=== PATIENT | female | born 1950 | race Caucasian/White ===

== ENCOUNTER 2019-07-13 06:44 | Observation (INO) ==
--- NOTE | 2019-06-30 07:22 | ANES ---
Anesthesia Pre Procedure Eval HOME MEDICATIONS lancets See Dose Instructions .ROUTE .MEDSUPPLY #100 ea 05/07/18 [Last Taken Unknown] acetaminophen 650 mg tablet,extended release 650 mg PO Q8H PRN 09/09/18 [Last Taken 01/24/19] albuterol sulfate 90 mcg/actuation aerosol inhaler 1 inh IH Q6H PRN #8 g 12/01/18 [Last Taken 01/25/19] blood sugar diagnostic See Rx Instructions .ROUTE .COMPLEX #50 strip 12/23/18 [Last Taken Unknown] budesonide-formoterol HFA 160 mcg-4.5 mcg/actuation aerosol inhaler 2 inh IH BID #10.2 g 03/24/19 [Last Taken Unknown] omeprazole 40 mg capsule,delayed release See Rx Instructions .ROUTE .COMPLEX #30 cap 04/21/19 [Last Taken Unknown] alendronate 70 mg tablet 70 mg PO Q7D #7 tab 05/11/19 [Last Taken Unknown] levothyroxine 25 mcg tablet 25 mcg PO DAILY #90 tab 05/11/19 [Last Taken Unknown] metformin 500 mg tablet See Rx Instructions .ROUTE .COMPLEX #30 tab 05/11/19 [Last Taken Unknown] venlafaxine 150 mg capsule,extended release 24 hr 150 mg PO DAILY #90 cap 05/11/19 [Last Taken Unknown] ascorbic acid (vitamin C) 1,000 mg tablet 1 g PO DAILY #30 tab 05/24/19 [Last Taken Unknown] lisinopril 20 mg tablet See Rx Instructions .ROUTE .COMPLEX #30 tablet 06/09/19 [Last Taken Unknown] ranitidine HCl 150 mg tablet See Rx Instructions .ROUTE .COMPLEX #30 tablet 06/09/19 [Last Taken Unknown] trazodone 50 mg tablet See Rx Instructions .ROUTE .COMPLEX #30 tablet 06/09/19 [Last Taken Unknown] atorvastatin 20 mg tablet 20 mg PO DAILY #30 tab 06/17/19 [Last Taken Unknown] Allergies/Adverse Reactions: Allergies Allergy/AdvReac Type Severity Reaction Status Date / Time egg Allergy positive Verified 06/28/19 10:16 allergy testing grass pollen Allergy positive Verified 06/28/19 10:16 allergy testing horse dander Allergy positive Verified 06/28/19 10:16 allergy testing house dust mite Allergy per Verified 06/28/19 10:16 allergy testing lactose Allergy positive Verified 06/28/19 10:16 allergy testing mold Allergy positive Verified 06/28/19 10:16 allergy testing No Known Drug Allergies Allergy Verified 06/28/19 10:16 peanut Allergy positive Verified 06/28/19 10:16 allergy testing wheat Allergy positive Verified 06/28/19 10:16 allergy testing cockroach Allergy per Uncoded 04/28/19 10:47 allergy testing cows milk Allergy per Uncoded 04/28/19 10:47 allergy testing price Allergy per Uncoded 04/28/19 10:47 allergy testing - Planned Procedure Planned Procedure: Left Arthroplasty Total Knee Medication List Reviewed:: Yes Allergies Verified: Yes Medical History (Last Reviewed 06/30/19 @ 07:20 by Micah Staton CRNA) Osteoporosis (Acute) Major depression (Chronic) Diabetes mellitus, type II (Chronic) Asthma (Chronic) Seasonal allergies (Chronic) High triglycerides Influenza vaccine refused States she has already receive. 04/03/18 Stress incontinence Bilateral primary osteoarthritis of knee Onset Date: ~10/24/17 Hay fever History of Thompson's esophagus Knee pain Anemia Surgical History (Last Reviewed 06/30/19 @ 07:20 by Micah Staton CRNA) History of carpal tunnel release History of colonoscopy Onset Date: 06/03/15 [place]und 12/03/05-negative. 03/30/12-polyp, non-diagnostic. 06/03/15- hyperplastic polyp, ulceration w/associated inflammation. History of cyst of breast Onset Date: ~2012 [place]-excision right breast cyst History of esophageal dilatation Onset Date: 06/03/15 Mukund-12/03/05, 06/03/15 History of esophagogastroduodenoscopy (EGD) Onset Date: 01/26/19 Mukund 12/03/05-gastric polyp, positive H.pylor, no Thompson's. 06/03/15- gastric polyp, mild chronic gastritis, Thompson's esophagus, no dysplasia. 01/26/19 Brandon-no Thompson's. Mild reflux esophagitis. History of hysterectomy Onset Date: ~1998 vaginal History of knee surgery Onset Date: ~2001 arthroscopy-left History of tubal ligation Onset Date: ~1985 Family History (Last Reviewed 06/30/19 @ 07:20 by Micah Staton CRNA) Mother , age 68-complication of diabetes Diabetes Son Alive and well 2 sons Daughter Alive and well Father , age 77-unsure of cause Status post partial gastrectomy Uncle Cancer several maternal uncles-lung ca - Family Anesthesia History Family History:: no untoward family reactions to anesthesia - Airway/Neck/Teeth Teeth Condition: missing Neck Exam: full range of motion Mallampatti Score: 2 Thyromental (T-M) distance: > 6 cm Mandibulo Hyoid distance: > 3 cm - Respiratory Respiratory History: asthma Respiratory Physical: lungs clear, decreased breath sounds Smoking Status: Never smoker Sleep Apnea currently treated: No Sleep Apnea by current assessment: No - Cardiovascular Cardiac History: hypertension Tolerate Activity: Fair Heart Sounds: S1 & S2, Regular - Gastrointestinal NPO since: instructed MN - Anesthesia Assessment and Plan ASA Class: PS, II Anesthesia Type Plan: Spinal - LT ADDUCTOR CANAL BLOCK Planned difficult intubation/equipment available: No
[~2019-07-13 06:44] MED LIST: ISOPROPYL ALCOHOL 480 APPL BTL MC ONE; ROPIVACAINE HCL/PF 100 MG, EPINEPHrine 0.2 MG, KETOROLAC TROMETHAMINE 30 MG in NORMAL S... IJ PRN; TRANEXAMIC ACID 1,000 MG in NORMAL SALINE 100 ML IV PRN; ceFAZolin SODIUM 1 GM VIAL IV PRN; ceFAZolin SODIUM 1 GM VIAL ONE
[2019-07-13] MEDS: RINGER'S SOLUTION,LACTATED 1,000 ML IV PRN ×3 (07:21→09:52)
[2019-07-13] MEDS ORDERED: LIDOCAINE HCL 20 ML VIAL ONE (07:31)
[2019-07-13] MEDS ORDERED: fentaNYL CITRATE/PF 50 MCG/ML AMPUL ONE (07:32)
[2019-07-13] MEDS ORDERED: BUPIVACAINE HCL/EPINEPHRINE 50 ML VIAL ONE (07:32)
[2019-07-13] MEDS ORDERED: PROPOFOL VIAL IV ONE (07:32)
[2019-07-13] MEDS ORDERED: ONDANSETRON HCL/PF 2 MG/ML VIAL ONE (07:32)
[2019-07-13] MEDS ORDERED: ACETAMINOPHEN 500 MG TABLET PO PRN (10:41)
[2019-07-13] MEDS ORDERED: MAGNESIUM HYDROXIDE 30 ML UDC PO PRN (10:41)
[2019-07-13] MEDS ORDERED: NORMAL SALINE 1,000 ML IV PRN (10:41)
[2019-07-13] MEDS ORDERED: oxyCODONE HCL/ACETAMINOPHEN 1 TAB TABLET PO PRN (10:41)
[2019-07-13] MEDS ORDERED: MAG HYDROX/ALUMINUM HYD/SIMETH 30 ML UDC PO PRN (10:41)
[2019-07-13] MEDS ORDERED: ONDANSETRON HCL/PF 2 MG/ML VIAL IV PRN (10:41)
[2019-07-13] MEDS ORDERED: MORPHINE SULFATE 2 MG/ML DISP.SYRIN IV PRN (10:41)
[2019-07-13] MEDS ORDERED: ALBUTEROL SULFATE 2.5 MG/0.5 ML VIAL.NEB IH PRN (10:46)
--- NOTE | 2019-07-13 10:50 | OR ---
Operative Report - Dictated Report Narrative: Date: 07/13/2019 Preoperative diagnosis: Left knee degenerative joint disease. Postoperative diagnosis: Left knee degenerative joint disease. Procedure: Left total knee arthroplasty. Surgeon: Kimo Gong M.D. Sewage Plant Operator: Pedro Quiñones PA-C provided a set of essential, skilled, educated hands that assisted in positioning, transfer, retraction, manipulation, irrigation, closure of wounds, and placement of dressings all of which could not be provided by the available surgical crew. Anesthesia: General with regional block and local periarticular joint injection. Complications: None Specimens: Bone for pathology Estimated blood loss: Minimal. Tourniquet time: 75 minutes at 300 millimeters of mercury. Retained implants: Depuy Attune size 4 standard lugged cemented posterior stabilized femoral component. Size 3 rotating bearing cemented tibial platform. 4 by 8 millimeter posterior stabilized cross-linked tibial insert. 35 millimeter medialized patella button. Indications: Zach is a 68-year-old female diabetic who has been followed in my clinic for period of time with significant complaints of left knee pain consistent with arthritic changes. They had failed conservative measures including but not limited to activity modification, passage of time, medications, and other conservative measures. Patient wished to proceed with surgical treatment. The risks, benefits, and alternatives were discussed in clinic. The risks of , blood clots, bleeding, infection, nerve/tendon blood vessel/ injury, malposition of components, intraoperative fracture, postoperative limited range of motion, persistent pain, failure of components, and need for additional procedures. Patient wished to proceed consent was obtained after answering all questions. Procedure: After marking the correct extremity on the floor, the patient was taken to the operating room. A timeout was performed. IV antibiotics consisting of 2 g of Ancef were administered prior to the procedure. A regional followed by spinal anesthetic was induced by anesthesia. on the operative table with all bony prominences well-padded. Coker catheter was placed and a bump was placed under the operative side buttock. SCDs and JACKELYN hose were utilized on the nonoperative leg. A well-padded tourniquet was applied to the operative thigh. The operative leg was then pre-scrubbed with alcohol prepped and draped in a standard sterile fashion. After exsanguinating the extremity with an Esmarch bandage, the tourniquet was inflated. After marking out the anterior knee for standard incision centered over the patella, the skin was incised and dissected down to the joint retinaculum. The joint retinaculum was marked out as well as the horizontal axis of the patella, and a standard medial parapatellar arthrotomy was then made. The most proximal aspect of the quadriceps tendon and the patella tendon insertion were protected from release. A partial synovectomy was performed as well as a resection of the infrapatellar fat pad. The distal femoral fat pad proximal to the trochlea was also resected using cautery. The soft tissues were elevated off the medial aspect of the proximal tibia using a Gibbons elevator ensuring that we did not transect the medial collateral ligament. Upon initial evaluation range of motion was approximately 3 degrees to 135 degrees of flexion. There were signs of advanced arthrosis in the medial and patellofemoral joint spaces. There were large marginal osteophytes which were removed with a rongeur. The knee was hyperflexed and the patella was tucked laterally. Protecting the surrounding soft tissues with Homans, an entry drill was placed down the femoral canal using Whitesides line for guidance into the entry point. The intramedullary femoral alignment gael was utilized in order to cut the distal femur in 5 of valgus resecting 10 millimeters of bone. Next the distal femur was sized to a size 4 standard. An anterior referencing guide was utilized to place the distal femoral cutting block in 3 of external rotation. This was pin patricia into place. The rotation was confirmed both visually and based on anatomic landmarks. The 4 in 1 cutting jig of the appropriate size was utilized in order to make all bony cuts. Retractors were utilized in order to protect surrounding soft tissues. This cut did not result in any excessive notching. We then cut the box centered over the distal femur. This allowed for resection of the ante rior and posterior cruciate ligaments. I then turned my attention to the preparation of the tibia. Using an extra medullary tibial alignment gael, 2 millimeters of bone was resected off the medial articular surface. This was made perpendicular to the mechanical axis of the joint with the alignment gael centered over the ankle mortise. The alignment gael was parallel to the mechanical axis, centered over the medial one third of the tibial tubercle, paralleling the anterior surface of the tibia. We then turned our attention to the remaining meniscus and soft tissues. These were removed while protecting the surrounding ligaments and soft tissues. The marginal osteophytes off the anterior, posterior, medial, lateral aspects of the femur and tibia were removed. The tibia was sized out to a size 3. Next the tibia was drilled and punched in an externally rotated position as confirmed with a drop gael. Next the trial femur and a series of tibial inserts were utilized in order to allow for full extension and maximal flexion. It was found that a 8 millimeter insert gave the best range of motion and stability at multiple flexion points as well as at full extension there was less than 2 mm of gapping both medially and laterally. There is minimal anterior translation with the knee at 90 of flexion and no signs of being able to dislocate the knee. The patella was then prepared. The initial thickness was 20 millimeters. This was reamed down to 12 millimeters parallel to the anterior surface of the patella. It was sized out to a size 35 mm medialized patella button. This was then drilled and trialed. Without any medial restraint the patella tracked appropriately and did not sublux or dislocate. At this point, it was felt these were the appropriate sized implants and all trials were removed. The standard periarticular joint injection consisting of ropivacaine, Toradol, and epinephrine were injected into the periarticular joint tissues. The bony surfaces were thoroughly irrigated with a pulsatile-suction saline irrigation device. A bone plug from the prior resected anterior chamfer cut was placed into the drill hole at the distal femur. The bony surfaces were then dried in preparation for placement of the implants. The cement was vacuum mixed per the passementerie worker's instructions. The cement was placed on the dry bony surfaces and posterior aspect of the implants. The implants were impacted into place, removing all extruded cement. At this point anesthesia administered tranexamic acid per protocol intravenously. The knee was placed in extension with axial loading with the trial insert while the cement cured. A dilute 0.35% betadyne-saline solution was used to irrigate the knee and allowed to sit in the knee while the cement cured. Once the cement cured, all remaining extruded cement was removed. The knee was placed through a range of motion with the trial insert to ensure appropriate range of motion and stability. Final range of motion was approximately 0 to 130 degrees. The knee was again thoroughly irrigated with pulsatile saline lavage. The final polyethylene insert was then impacted into place ensuring no retained soft tissues. The remaining periarticular joint injection was injected. The knee was then packed with lap sponges which were soaked with dilute betadyne solution and the tourniquet was let down. Pressure was held for approximately 2 minutes and then hemostasis was obtained using electrocautery to coagulate any bleeding vessels. The knee was then placed over a triangle and the arthrotomy was closed with interrupted #1 Vicryl after thoroughly irrigating the joint. The deep and subcutaneous tissues were closed with interrupted 0 and 3-0 Vicryl respectively. Skin was closed with a running subcutaneous 3-0 Monocryl and Prineo dressing. 4 x 4's, ABD, Sof-Rol, and a full leg Valentino wrap were applied. All sponge, needle, blade, and instrument counts were correct prior to closing the wounds. Postoperative condition: The patient was awoken and transferred to the postanesthesia care unit in stable condition. Plan is to be admitted to the inpatient medical/surgical floor postoperatively for 24 hours of IV antibiotics, physical therapy, occupational therapy, and medical co-management. Patient will be weightbearing as tolerated with range of motion as tolerated. DVT prophylaxis will be with SCDs, JACKELYN hose, and pharmacological anticoagulation. Anticipated hospital stay is approximately 2-4 days.
--- NOTE | 2019-07-13 10:59 | ANES ---
Post Anesthesia Discharge - Transfer of Care Transfer of Care handoff given to nurse: Yes - Discharge from PACU Discharge from PACU when meets criteria: Yes - Discharge to ASU Discharge to ASU-no complications/pt stable: Yes
--- NOTE | 2019-07-13 11:00 | ANES ---
Anesthesia Procedure Note Procedure Note: ANESTHESIA PROCEDURE NOTE Date of Procedure: 07/13/2019 Time of procedure: 45. Performed by: Davie Umana CRNA Food Safety Director: None. Preprocedure diagnosis: Left knee degenerative joint disease. Post procedure diagnosis: Same. Procedure: Left ultrasound guided adductor canal block for postoperative analgesia. Indications: The patient is a 68-year-old female, requesting left ultrasound- guided abductor canal block for postoperative analgesia related to left total knee arthroplasty. Findings: See below. Details of the procedure: The tissue over the intended target site was cleansed with ChloraPrepand draped in a sterile fashion. 2 ml Lidocaine 1 % was infiltrated to the skin and subcutaneous tissue at the intended target site. Under sterile technique and ultrasound guidance a 20-gauge block needle was inserted through the left sartorius muscle to the saphenous nerve just anterior and medial to the superficial femoral artery and vein. 15 mL's of 0.5% bupivacaine was injected after negative aspiration for blood. Needle tip and spread of local anesthetic surrounding the saphenous nerve was observed throughout the injection with real time ultrasound visualization. The needle was then removed intact. No complications were noted. The images were retained in the Hospital medical database. EBL: Minimal. Fluids: N/A. Specimen: N/A. Post procedure condition: The patient tolerated the procedure well. No complications were noted. Thank you for this consultation. Davie Umana CRNA
--- NOTE | 2019-07-13 11:21 | ANES ---
Post Anesthesia Assessment - Vital Signs Vitals: Last Vital Signs Temp 36.2 C 07/13/19 11:00 Pulse 106 H 07/13/19 11:10 Resp 20 07/13/19 11:10 BP 138/78 07/13/19 11:10 Pulse Ox 100 07/13/19 11:10 Airway Patency: Normal - Mental Status Level Of Consciousness: Awake - Pain Level Pain Score: 0 - N/V Assessment Nausea/Vomiting Presence: None Dehydration:: No
[2019-07-13] MEDS: ceFAZolin SODIUM 2 GM in DEXTROSE 5 % IN WATER 50 ML IV SCH ×4 (13:53→21:25)
[2019-07-13] MEDS ORDERED: ROSUVASTATIN CALCIUM 10 MG TABLET PO SCH (21:00)
[2019-07-13] MEDS ORDERED: SENNOSIDES/DOCUSATE SODIUM 1 TAB TABLET PO SCH (21:00)
[2019-07-13] MEDS ORDERED: metFORMIN HCL 500 MG TABLET PO SCH (21:00)
[2019-07-13] MEDS ORDERED: traZODone HCL 50 MG TABLET PO SCH (21:00)
[2019-07-13] MEDS: FLUTICASONE PROPION/SALMETEROL 14 PUFF DISK.W.DEV IH SCH (21:19)
[2019-07-13] MEDS: oxyCODONE HCL/ACETAMINOPHEN 1 TAB TABLET PO PRN (21:26)
[2019-07-14] MEDS: oxyCODONE HCL/ACETAMINOPHEN 1 TAB TABLET PO PRN ×3 (03:01→15:01)
[2019-07-14] MEDS: ceFAZolin SODIUM 2 GM in DEXTROSE 5 % IN WATER 50 ML IV SCH ×2 (05:56)
[2019-07-14] MEDS: FAMOTIDINE 20 MG TABLET PO SCH ×2 (06:34→09:39)
[2019-07-14] MEDS: PANTOPRAZOLE SODIUM 20 MG TABLET.DR PO SCH ×2 (06:34→09:40)
[2019-07-14 06:36] LABS: Hematocrit 34.1 % (37.0-47.0); Hemoglobin 10.3 gm/dL (12.5-16.0); Mean Cell Volume 83.2 fl (78-100); Mean Corpuscular Hemoglobin 25.1 pg (27-31); Mean Corpuscular Hgb Conc 30.2 g/dl (32-36); Mean Platelet Volume 9.7 fl (8-12.5); Platelet Count 193 K/mm3 (150-450); Red Cell Distribution Width 16.2 % (11.5-14.0); White Blood Count 13.1 K/mm3 (4.0-10.5)
[2019-07-14 06:54] LABS: Anion Gap 9.7 mmol/L (6.8-13.8); BUN/Creatinine Ratio 15.5 (9.0-21.6); Calcium * 7.9 mg/dL (7.9-10.9); Carbon Dioxide 28.9 mmol/L (24-32.6); Estimated Creat Clear 42.5; Potassium 4.6 mmol/L (3.4-4.6)
[2019-07-14] MEDS ORDERED: LEVOTHYROXINE SODIUM 25 MCG TABLET PO SCH (07:00)
[2019-07-14] MEDS ORDERED: ASCORBIC ACID 500 MG TABLET PO SCH (09:00)
[2019-07-14] MEDS ORDERED: metFORMIN HCL 500 MG TABLET PO SCH (09:00)
[2019-07-14] MEDS ORDERED: LISINOPRIL 20 MG TABLET PO SCH (09:00)
[2019-07-14] MEDS ORDERED: VENLAFAXINE HCL 150 MG CAP.SR.24H PO SCH (09:00)
[2019-07-14] MEDS ORDERED: IBUPROFEN 600 MG TABLET PO PRN (09:26)
[2019-07-14] MEDS: FLUTICASONE PROPION/SALMETEROL 14 PUFF DISK.W.DEV IH SCH (09:38)
[2019-07-14] MEDS ORDERED: ENOXAPARIN SODIUM 40 MG/0.4 ML SYRG SC SCH (09:42)
[2019-07-14] MEDS ORDERED: METOPROLOL TARTRATE 25 MG TABLET PO SCH (12:15)
--- NOTE | 2019-07-14 15:24 | DS ---
(1) Status post total left knee replacement Problem: Acute Date of Discharge:: 07/14/19 Hospital Course: 68-year-old female postop day 1 status post a left total knee arthroplasty. Patient was admitted for observation postoperatively to monitor for postoperative complications, pain control, return to p.o. diet, any other postsurgical complications. Patient has had a fairly uncomplicated stay, note she was having sinus tach, we consulted patient's PCP Dr. White due to mild hypertension and sinus tachycardia. Patient was given metoprolol to begin twice daily. She will follow-up with PCP after discharge. Exam today reveals left lower extremity bandages clean/dry/intact, pernio in place, no significant erythema or drainage, distal capillary refill brisk, sensation intact light touch, diffuse mild tenderness about left knee. Patient is otherwise doing well lives in a 1 level home will be discharged home to begin home health PT, patient is up and ambulating well enough to ride transport to the hospital should begin outpatient physical therapy. Zach Godfrey is confined and homebound due to the fact she does not drive and recently had left total knee arthroplasty performed. Patient will need fpc to monitor new medication for blood pressure and tachycardia. Patient will follow-up with PCP as well to be monitored. Patient will also require physical therapy/occupational therapy services to begin her rehabilitation for her left total knee arthroplasty. The need for home health care and skilled services to regulated time spent [id number] with this person. Patient will follow-up with orthopedic outpatient clinic at 2 weeks postoperative. Patient will continue with the following recommendations: -Weightbearing as tolerated left lower extremity, assistive device PRN -PT/OT progress as tolerated, per protocol -P.o. diet as tolerated -Pain medication Percocet 5/325 mg 1-2 tabs every 4 to 6 hours PRN for pain p.o. -Maintain dressing in place until postoperative follow-up -Follow-up with orthopedic outpatient clinic at 2 weeks postop -DVT prophylaxis, JACKELYN vladimire knee-high, Lovenox until 10 days postoperatively followed by 325 mg aspirin daily for 6 weeks -Home health begin physical therapy monitor blood pressure and tachycardia medication, follow-up with PCP Procedures Performed: see notes below List Procedures: s/p left total knee arthroplasty Results and Findings: Lab Pending Results 07/13/19 10:13: Pathology Specimen Spec to path 07/14/19 06:33: WBC 13.1 H, RBC 4.10 L, Hgb 10.3 L, Hct 34.1 L, MCV 83.2, MCH 25.1 L, MCHC 30.2 L, RDW 16.2 H, Plt Count 193, MPV 9.7 07/14/19 06:33: Sodium 137, Plasma Sodium 138, Potassium 4.6, Chloride 103, Carbon Dioxide 28.9, Anion Gap 9.7, BUN 16, Creatinine 1.03, Est GFR (Non-Af Amer) 57 L, BUN/Creatinine Ratio 15.5, Random Glucose 176 H, Calcium 7.9 Discharge Location: Home Disposition: Home Health Service Home Health Agency: [facility] Home Health Condition: Good Discharge Activity: Activity as tolerated, Weight bearing - Assistive device PRN Discharge Diet: General/regular food Referrals: Kimo Gong MD [Staff Physician] - 07/28/19 9:00 am Problem Oriented Discharge Instructions to Patient/Family: Total Knee Replacement, Care After, [id number] Print Language (Northern Irish or Libyan Available): Northern Irish Additional Patient Instructions (free text): [facility] HH new at discharge, please call and fax discharge information to them. Follow-up in the office with Dr. Gong on 07-28-19 at 9:00am. Prescriptions (Any new or edited meds): Metoprolol Tartrate [Lopressor] 25 mg PO BID #30 tab Transmission Status: Pending to [place], [place] Enoxaparin Sodium [Lovenox] 40 mg SC Q24H #9 disp.syrin Transmission Status: Pending to [place] oxyCODONE HCL/ACETAMINOPHEN [Percocet 5 MG/325 MG] 1 - 2 tab PO Q4H PRN #90 tab PRN Reason: Severe Pain (Pain Scale 7-10) Transmission Status: Sent to [place], [place] Complete Home Medications List: Complete Home Medication List: acetaminophen 650 mg tablet,extended release 650 mg PO Q8H PRN 09/09/18 albuterol sulfate 90 mcg/actuation aerosol inhaler 1 inh IH Q6H PRN #8 g 12/01/18 blood sugar diagnostic See Rx Instructions .ROUTE .COMPLEX #50 strip 12/23/18 alendronate 70 mg tablet 70 mg PO Q7D #7 tab 11/19/19 levothyroxine 25 mcg tablet 25 mcg PO DAILY #90 tab 05/11/19 venlafaxine 150 mg capsule,extended release 24 hr 150 mg PO DAILY #90 cap 05/11/19 ascorbic acid (vitamin C) 1,000 mg tablet 1 g PO DAILY #30 tab 05/24/19 atorvastatin 20 mg tablet 20 mg PO DAILY #30 tab 06/17/19 Diclofenac Sodium [Diclofenac 1% Topical Gel] 1 appl TOPICAL QID PRN 06/30/19 Ibuprofen 400 mg PO DAILY PRN 06/30/19 Lisinopril 1 tab PO DAILY 06/30/19 Omeprazole 1 cap PO DAILY 06/30/19 Ranitidine HCl [Heartburn Relief] 1 tab PO DAILY 06/30/19 metFORMIN HCL [Metformin HCl] 1 tab PO DAILY 06/30/19 traZODone HCL [Desyrel] 50 mg PO HS 06/30/19 budesonide-formoterol HFA 160 mcg-4.5 mcg/actuation aerosol inhaler See Rx Instructions .ROUTE .COMPLEX #10.2 gram 07/02/19 Lancets 0 ea .ROUTE .MEDSUPPLY 07/13/19 Enoxaparin Sodium [Lovenox] 40 mg SC Q24H #9 disp.syrin 07/14/19 Ibuprofen [Motrin] 600 mg PO Q8H PRN tablet 07/14/19 Metoprolol Tartrate [Lopressor] 25 mg PO BID #30 tab 07/14/19 oxyCODONE HCL/ACETAMINOPHEN [Percocet 5 MG/325 MG] 1 - 2 tab PO Q4H PRN #90 tab 07/14/19
[2019-07-14 16:44] VITALS: BP 128/50
[2019-07-19] MEDS ORDERED: ALENDRONATE SODIUM 70 MG TABLET PO SCH (06:00)
== END 2019-07-14 16:30 | disposition home health service (06) ==
LOC: MS 06:44 → SUR 06:44
PROVIDERS: ADMIT Orthopaedic Surgery; ATTEND Orthopaedic Surgery
DX: Z96.652 Presence of left artificial knee joint
CPT/HCPCS: 36415; 73560; 80048; 85027; 88305; 88311; 94640; 94664; 97110; 97116; 97161; 97165; 97535; G0378; J2405

== ENCOUNTER 2019-09-07 08:56 | Observation (INO) ==
[2019-09-07] MEDS ORDERED: ALBUTEROL SULFATE/IPRATROPIUM 3 ML NEBU IH ONE (09:12)
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
[2019-09-07] MEDS ORDERED: METHYLPREDNISOLONE SOD SUCC/PF 125 MG/2 ML VIAL IV ONE (09:55)
[2019-09-07 10:09] LABS: Hematocrit 38.6 % (37.0-47.0); Hemoglobin 11.5 gm/dL (12.5-16.0); Mean Cell Volume 80.1 fl (78-100); Mean Corpuscular Hemoglobin 23.9 pg (27-31); Mean Corpuscular Hgb Conc 29.8 g/dl (32-36); Mean Platelet Volume 10.9 fl (8-12.5); Neutrophil # 3.9 K/mm3 (1.3-6.0); Neutrophil % 70.6 % (42-75.0); Platelet Count 218 K/mm3 (150-450); Red Blood Count 4.82 M/mm3 (4.2-5.4); Red Cell Distribution Width 16.5 % (11.5-14.0); White Blood Count 5.5 K/mm3 (4.0-10.5)
[2019-09-07 10:17] LABS: Troponin I Less than 0.017 ng/mL (0.00-0.10)
[2019-09-07 10:19] LABS: ALT 17 U/L (19-67); AST 17 U/L (0-48); Albumin * 3.5 gm/dl (3.4-5.0); Alkaline Phosphatase * 96 U/L (50-170); Anion Gap 12.8 mmol/L (6.8-13.8); BNP * 272 pg/mL (5-325); BUN/Creatinine Ratio 15.4 (9.0-21.6); Bilirubin, Total 0.2 mg/dL (0.0-1.1); Blood Urea Nitrogen 14 mg/dL (3-23); Ca. Corrected For Albumin 8.8 mg/dL (8.4-10.2); Calcium * 8.7 mg/dL (7.9-10.9); Carbon Dioxide 29.5 mmol/L (24-32.6); Chloride 102 mmol/L (97-106); Glucose * 139 mg/dL (70-110); Potassium 4.3 mmol/L (3.4-4.6); Sodium 140 mmol/L (132-142); Total Protein 7.8 gm/dL (6.2-8.2)
[2019-09-07] MEDS ORDERED: ALBUTEROL SULFATE 2.5 MG/0.5 ML VIAL.NEB IH ONE ×2 (10:48→10:57)
[2019-09-07] MEDS ORDERED: OSELTAMIVIR PHOSPHATE 75 MG CAPSULE PO ONE (10:49)
[2019-09-07] MEDS ORDERED: ACETAMINOPHEN 325 MG TABLET PO PRN (11:30)
[2019-09-07] MEDS ORDERED: guaiFENesin 100 MG/5 ML SYRUP PO PRN (11:30)
[2019-09-07] MEDS ORDERED: ALBUTEROL SULFATE 2.5 MG/0.5 ML VIAL.NEB IH PRN (11:35)
[2019-09-07] MEDS ORDERED: DICLOFENAC SODIUM 100 APPL TUBE TP PRN (11:35)
[2019-09-07] MEDS ORDERED: ASPIRIN 325 MG TABLET.DR PO SCH (11:45)
[2019-09-07] MEDS ORDERED: METOPROLOL TARTRATE 25 MG TABLET PO SCH (11:45)
[2019-09-07] MEDS ORDERED: ROSUVASTATIN CALCIUM 10 MG TABLET PO SCH ×2 (11:45→21:00)
[2019-09-07] MEDS: FLUTICASONE PROPION/SALMETEROL 14 PUFF DISK.W.DEV IH SCH ×2 (13:15→22:04)
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
[2019-09-07] MEDS: FAMOTIDINE 20 MG TABLET PO SCH (13:18)
[2019-09-07] MEDS: ASCORBIC ACID 500 MG TABLET PO SCH (13:18)
[2019-09-07] MEDS: PANTOPRAZOLE SODIUM 40 MG TABLET.EC PO SCH (13:19)
[2019-09-07] MEDS: VENLAFAXINE HCL 150 MG CAP.SR.24H PO SCH (13:19)
[2019-09-07] MEDS: metFORMIN HCL 500 MG TABLET PO SCH (13:19)
[2019-09-07] MEDS: OSELTAMIVIR PHOSPHATE 75 MG CAPSULE PO SCH ×2 (13:19→22:06)
[2019-09-07] MEDS: LISINOPRIL 20 MG TABLET PO SCH (13:19)
[2019-09-07] MEDS: INSULIN REGULAR, HUMAN 100 UNITS/ML VIAL SC SCH ×3 (13:31→22:07)
[2019-09-07] MEDS: LEVOTHYROXINE SODIUM 25 MCG TABLET PO SCH (13:50)
[2019-09-07] MEDS: BENZONATATE 100 MG CAPSULE PO PRN (14:47)
[2019-09-07] MEDS: ALBUTEROL SULFATE 2.5 MG/0.5 ML VIAL.NEB IH SCH ×3 (15:03→22:16)
[2019-09-07] MEDS ORDERED: traZODone HCL 50 MG TABLET PO SCH (21:00)
[2019-09-08] MEDS: BENZONATATE 100 MG CAPSULE PO PRN (00:28)
[2019-09-08] MEDS: ALBUTEROL SULFATE 2.5 MG/0.5 ML VIAL.NEB IH SCH ×2 (02:09→06:18)
[2019-09-08] MEDS: INSULIN REGULAR, HUMAN 100 UNITS/ML VIAL SC SCH (06:51)
[2019-09-08] MEDS: LEVOTHYROXINE SODIUM 25 MCG TABLET PO SCH (06:55)
[2019-09-08] MEDS: PANTOPRAZOLE SODIUM 40 MG TABLET.EC PO SCH (06:55)
[2019-09-08] MEDS ORDERED: predniSONE 20 MG TABLET PO SCH (09:00)
[2019-09-08] MEDS: FLUTICASONE PROPION/SALMETEROL 14 PUFF DISK.W.DEV IH SCH (09:06)
[2019-09-08] MEDS: OSELTAMIVIR PHOSPHATE 75 MG CAPSULE PO SCH (09:06)
[2019-09-08] MEDS: FAMOTIDINE 20 MG TABLET PO SCH (09:07)
[2019-09-08] MEDS: LISINOPRIL 20 MG TABLET PO SCH (09:39)
[2019-09-08] MEDS: ASCORBIC ACID 500 MG TABLET PO SCH (09:40)
[2019-09-08] MEDS: metFORMIN HCL 500 MG TABLET PO SCH (09:40)
[2019-09-08] MEDS: VENLAFAXINE HCL 150 MG CAP.SR.24H PO SCH (09:40)
--- NOTE | 2019-09-08 09:43 | DS ---
(1) Influenza A Problem: Acute (2) Hypoxia Problem: Resolved (3) Wheezing on both sides of chest Problem: Resolved (4) Asthma exacerbation Problem: Resolved (5) Diabetes 1.5, managed as type 2 Problem: Chronic (6) HTN (hypertension) Problem: Chronic Qualifiers: Hypertension type: essential hypertension Qualified Code(s): I10 - Essential (primary) hypertension Date of Discharge:: 09/08/19 Hospital Course: 69-year-old female admitted for influenza type a, bronchial asthma exacerbation, hypoxia was evaluated bedside and was found to be afebrile and in no acute distress. After treating patient with breathing treatments with albuterol [id number] and steroids, her breathing difficulty and shortness of breath has completely resolved and auscultation was negative for any wheezing or abnormal lung sounds. Patient reports she feels much better and back to her old self. She is breathing much easier than when she arrived. Therefore decision to discharge patient home with prescription for Tamiflu which she is to complete over the next 4 days for a total of 5 days, and additional days of oral steroids was made. Patient will also resume all of her routine medications and she was instructed to follow-up with me in the internal medicine clinic within the next 14 days. Procedures Performed: none Results and Findings: Lab Pending Results 09/07/19 09:03: Influenza Type A Ag Positive H, Influenza Type B Ag Negative 09/07/19 09:03: Group A Strep Rapid Negative 09/07/19 09:43: WBC 5.5, RBC 4.82, Hgb 11.5 L, Hct 38.6, MCV 80.1, MCH 23.9 L, MCHC 29.8 L, RDW 16.5 H, Plt Count 218, MPV 10.9, Immature Gran % (Auto) 1.10 H, Immature Gran # (Auto) 0.06 H, Neutrophils % 70.6, Lymphocytes % 11.7 L, Monocytes % 15.7 H, Eosinophils % 0.4, Basophils % 0.5, Nucleated RBC % 0.0, Neutrophils # 3.9, Lymphocytes # 0.64 L, Monocytes # 0.9, Eosinophils # 0.0, Absolute Basophils 0.0 09/07/19 09:43: Sodium 140, Plasma Sodium 141, Potassium 4.3, Chloride 102, Carbon Dioxide 29.5, Anion Gap 12.8, BUN 14, Creatinine 0.91, Est GFR (Non-Af Amer) 66, BUN/Creatinine Ratio 15.4, Random Glucose 139 H, Calcium 8.7, Calcium Adj for Albumin 8.8, Total Bilirubin 0.2, AST 17, ALT 17 L, Alkaline Phosphatase 96, Troponin I Less than 0.017, B-Natriuretic Peptide 272, Total Protein 7.8, Albumin 3.5 09/07/19 09:43: Lactic Acid, Venous 1.4 Discharge Location: Home Disposition: Home self-care Condition: Stable Face to Face Encounter completed per [facility] Guidelines: No Discharge Activity: Activity as tolerated Discharge Diet: Consistent carbs, Low salt, Low fat/chol Additional Patient Instructions (free text): Will be a TCM follow up appointment. Prescriptions (Any new or edited meds): predniSONE [Prednisone] 20 mg PO DAILY 4 Days #4 tab Transmission Status: Pending to [facility] Oseltamivir Phosphate [Tamiflu] 75 mg PO BID 4 Days #8 cap Transmission Status: Pending to [facility] Benzonatate [Tessalon] 200 mg PO Q8H PRN #60 cap PRN Reason: Cough Transmission Status: Pending to [facility] Complete Home Medications List: Complete Home Medication List: acetaminophen 650 mg tablet,extended release 650 mg PO Q8H PRN 09/09/18 alendronate 70 mg tablet 70 mg PO Q7D #7 tab 05/11/19 ascorbic acid (vitamin C) 1,000 mg tablet 1 g PO DAILY #30 tab 05/24/19 lisinopril 20 mg tablet 20 mg PO DAILY #90 tab 07/28/19 metformin 500 mg tablet 500 mg PO DAILY #90 tab 07/28/19 omeprazole 40 mg capsule,delayed release 40 mg PO DAILY #90 cap 07/28/19 ranitidine HCl 150 mg tablet 150 mg PO DAILY #90 tab 07/28/19 trazodone 50 mg tablet 50 mg PO HS #90 tab 07/28/19 blood sugar diagnostic See Rx Instructions .ROUTE .COMPLEX #100 ea 08/02/19 lancets See Rx Instructions .ROUTE .MEDSUPPLY #100 ea 08/02/19 levothyroxine 25 mcg tablet 25 mcg PO DAILY #90 tab 08/27/19 venlafaxine 150 mg capsule,extended release 24 hr 150 mg PO DAILY #90 cap 08/27/19 albuterol sulfate 90 mcg/actuation aerosol inhaler 1 inh IH Q6H PRN #8 g 09/06/19 Atorvastatin Calcium 20 mg PO HS 09/07/19 Budesonide/Formoterol Fumarate [Symbicort 160-4.5 Mcg Inhaler] 2 puff INHALATION BID 09/07/19 Benzonatate [Tessalon] 200 mg PO Q8H PRN #60 cap 09/08/19 Oseltamivir Phosphate [Tamiflu] 75 mg PO BID 4 Days #8 cap 09/08/19 predniSONE [Prednisone] 20 mg PO DAILY 4 Days #4 tab 09/08/19
[2019-09-08 10:38] VITALS: BP 120/81
[2019-09-13] MEDS ORDERED: ALENDRONATE SODIUM 70 MG TABLET PO SCH (07:00)
== END 2019-09-08 10:36 | disposition home or self-care (01) ==
LOC: MS 08:56 → ER 08:56 → MS 12:30
PROVIDERS: ADMIT Family Medicine; ATTEND Family Medicine
DX: E66.01 Morbid (severe) obesity due to excess calories; J10.1 Influenza due to other identified influenza virus with other respiratory manifestations; R09.02 Hypoxemia; Z79.84 Long term (current) use of oral hypoglycemic drugs; E03.9 Hypothyroidism, unspecified; I10 Essential (primary) hypertension; E11.9 Type 2 diabetes mellitus without complications; F32.9 Major depressive disorder, single episode, unspecified; Z68.37 Body mass index [BMI] 37.0-37.9, adult; M19.90 Unspecified osteoarthritis, unspecified site; J45.901 Unspecified asthma with (acute) exacerbation
CPT/HCPCS: 36415; 71020; 71046; 80053; 83519; 83605; 83880; 84484; 85025; 87040; 87081; 87400; 87430; 87449; 93005; 94640; 94664; 96374; 99284; 99285

== ENCOUNTER 2020-08-15 06:06 | Observation (INO) ==
[~2020-08-15 06:06] MED LIST changes: -ISOPROPYL ALCOHOL 480 APPL BTL MC ONE; +MORPHINE SULFATE 15 MG TABLET.SA PO PRN; +RINGER'S SOLUTION,LACTATED 1,000 ML IV PRN; -ROPIVACAINE HCL/PF 100 MG, EPINEPHrine 0.2 MG, KETOROLAC TROMETHAMINE 30 MG in NORMAL S... IJ PRN; +ROPIVACAINE/CLONIDIN/KETOROLAC 50 ML SYRINGE IJ PRN; -ceFAZolin SODIUM 1 GM VIAL ONE
[2020-08-15] MEDS ORDERED: PROPOFOL VIAL IV ONE (06:44)
[2020-08-15] MEDS ORDERED: BUPIVACAINE HCL/EPINEPHRINE 50 ML VIAL IJ ONE (06:44)
[2020-08-15] MEDS ORDERED: MIDAZOLAM HCL/PF 5 MG/ML VIAL ONE (06:44)
[2020-08-15] MEDS ORDERED: ISOPROPYL ALCOHOL 480 APPL BTL MC ONE (06:46)
[2020-08-15] MEDS ORDERED: ceFAZolin SODIUM 1 GM VIAL ONE (06:46)
--- NOTE | 2020-08-15 06:53 | ANES ---
Anesthesia Pre Procedure Eval Vitals/Labs: Last Vital Signs Temp 36.6 C 08/15/20 06:31 Pulse 96 08/15/20 06:31 Resp 18 08/15/20 06:31 BP 156/87 H 08/15/20 06:31 Pulse Ox 96 08/15/20 06:31 HOME MEDICATIONS acetaminophen 650 mg tablet,extended release 650 mg PO Q8H PRN 09/09/18 [Last Taken 07/12/19] blood sugar diagnostic See Rx Instructions .ROUTE .COMPLEX #100 ea 08/02/19 [Last Taken Unknown] lancets See Rx Instructions .ROUTE .MEDSUPPLY #100 ea 08/02/19 [Last Taken Unknown] inhalational spacing device See Rx Instructions .ROUTE .MEDSUPPLY #1 ea 09/20/19 [Last Taken Unknown] ibuprofen 200 mg tablet 200 mg PO prn PRN tab 01/31/20 [Last Taken 08/05/20] levothyroxine 25 mcg tablet See Rx Instructions .ROUTE .COMPLEX #90 tab 02/22/20 [Last Taken Unknown] atorvastatin 20 mg tablet 20 mg PO HS #90 tab 03/06/20 [Last Taken Unknown] meclizine 25 mg tablet 25 mg PO TID PRN #30 tab 03/23/20 [Last Taken Unknown] metoprolol succinate 50 mg tablet,extended release 24 hr 50 mg PO DAILY #90 tab 04/05/20 [Last Taken 08/15/20 05:30] venlafaxine 150 mg capsule,extended release 24 hr See Rx Instructions .ROUTE .COMPLEX #90 cap 05/09/20 [Last Taken Unknown] albuterol sulfate 90 mcg/actuation aerosol inhaler 1 inh IH Q6H PRN #8 g 06/20/20 [Last Taken Unknown] alendronate 70 mg tablet See Rx Instructions .ROUTE .COMPLEX #12 tab 07/11/20 [Last Taken Unknown] lisinopril 20 mg tablet 20 mg PO DAILY #30 tab 07/28/20 [Last Taken 08/15/20 05:30] metformin 500 mg tablet 500 mg PO DAILY #30 tab 07/28/20 [Last Taken Unknown] omeprazole 40 mg capsule,delayed release 40 mg PO DAILY #30 cap 07/28/20 [Last Taken Unknown] trazodone 50 mg tablet 50 mg PO HS #30 tab 07/28/20 [Last Taken Unknown] budesonide-formoterol HFA 160 mcg-4.5 mcg/actuation aerosol inhaler 2 puff INHALATION BID #10.2 g 08/11/20 [Last Taken Unknown] Allergies/Adverse Reactions: Allergies Allergy/AdvReac Type Severity Reaction Status Date / Time egg Allergy Unknown positive Verified 08/15/20 06:37 allergy testing grass pollen Allergy Unknown positive Verified 08/15/20 06:37 allergy testing horse dander Allergy Unknown positive Verified 08/15/20 06:37 allergy testing house dust mite Allergy Unknown per Verified 08/15/20 06:37 allergy testing lactose Allergy Unknown positive Verified 08/15/20 06:37 allergy testing mold Allergy Unknown positive Verified 08/15/20 06:37 allergy testing peanut Allergy Unknown positive Verified 08/15/20 06:37 allergy testing wheat Allergy Unknown positive Verified 08/15/20 06:37 allergy testing No Known Drug Allergies Allergy Verified 08/15/20 06:37 cockroach Allergy Unknown per Uncoded 08/15/20 06:37 allergy testing cows milk Allergy Unknown per Uncoded 08/15/20 06:37 allergy testing price Allergy Unknown per Uncoded 08/15/20 06:37 allergy testing - Planned Procedure Planned Procedure: R Arthroplasty Total Knee Medical History (Last Reviewed 08/15/20 @ 06:35 by Yeimy Geller) Osteoporosis (Acute) patient states has osteopenia, not osteoporosis Major depression (Chronic) Diabetes mellitus, type II (Chronic) Asthma (Chronic) Seasonal allergies (Chronic) High triglycerides Hypothyroid states now normal with medication Influenza vaccine refused States she has already receive. 04/03/18 Sinus tachycardia Stress incontinence Bilateral primary osteoarthritis of knee Onset Date: ~10/24/17 Hay fever History of Thompson's esophagus now-resolved Dr. Taylor 2019 Knee pain Anemia Surgical History (Last Reviewed 08/15/20 @ 06:35 by Yeimy Geller) History of carpal tunnel release History of colonoscopy Onset Date: 06/03/15 Mukund 12/03/05-negative. 03/30/12-polyp, non-diagnostic. 06/03/15- hyperplastic polyp, ulceration w/associated inflammation. History of cyst of breast Onset Date: ~2012 1999, 2012 Poon-excision right breast cyst History of esophageal dilatation Onset Date: 06/03/15 Mukund-12/03/05, 06/03/15 History of esophagogastroduodenoscopy (EGD) Onset Date: 01/26/19 Mukund 12/03/05-gastric polyp, positive H.pylor, no Thompson's. 06/03/15- gastric polyp, mild chronic gastritis, Thompson's esophagus, no dysplasia. 01/26/19 Brandon-no Thompson's. Mild reflux esophagitis. History of hysterectomy Onset Date: ~1998 vaginal History of knee surgery Onset Date: ~2001 arthroscopy-left History of tubal ligation Onset Date: ~1985 Hx of total knee arthroplasty Onset Date: ~07/13/19 Left total knee arthroplasty. Dr. Gong Family History (Last Reviewed 08/15/20 @ 06:36 by Yeimy Geller) Mother , age 68-complication of diabetes Diabetes Son Alive and well 2 sons Daughter Alive and well Father , age 77-unsure of cause Status post partial gastrectomy Uncle Cancer several maternal uncles-lung ca
--- NOTE | 2020-08-15 07:12 | ANES ---
Anesthesia Pre Procedure Eval Vitals/Labs: Last Vital Signs Temp 36.6 C 08/15/20 06:31 Pulse 96 08/15/20 06:31 Resp 18 08/15/20 06:31 BP 156/87 H 08/15/20 06:31 Pulse Ox 96 08/15/20 06:31 HOME MEDICATIONS acetaminophen 650 mg tablet,extended release 650 mg PO Q8H PRN 09/09/18 [Last Taken 07/12/19] blood sugar diagnostic See Rx Instructions .ROUTE .COMPLEX #100 ea 08/02/19 [Last Taken Unknown] lancets See Rx Instructions .ROUTE .MEDSUPPLY #100 ea 08/02/19 [Last Taken Unknown] inhalational spacing device See Rx Instructions .ROUTE .MEDSUPPLY #1 ea 09/20/19 [Last Taken Unknown] ibuprofen 200 mg tablet 200 mg PO prn PRN tab 01/31/20 [Last Taken 08/05/20] levothyroxine 25 mcg tablet See Rx Instructions .ROUTE .COMPLEX #90 tab 02/22/20 [Last Taken Unknown] atorvastatin 20 mg tablet 20 mg PO HS #90 tab 03/06/20 [Last Taken Unknown] meclizine 25 mg tablet 25 mg PO TID PRN #30 tab 03/23/20 [Last Taken Unknown] metoprolol succinate 50 mg tablet,extended release 24 hr 50 mg PO DAILY #90 tab 04/05/20 [Last Taken 08/15/20 05:30] venlafaxine 150 mg capsule,extended release 24 hr See Rx Instructions .ROUTE .COMPLEX #90 cap 05/09/20 [Last Taken Unknown] albuterol sulfate 90 mcg/actuation aerosol inhaler 1 inh IH Q6H PRN #8 g 06/20/20 [Last Taken Unknown] alendronate 70 mg tablet See Rx Instructions .ROUTE .COMPLEX #12 tab 07/11/20 [Last Taken Unknown] lisinopril 20 mg tablet 20 mg PO DAILY #30 tab 07/28/20 [Last Taken 08/15/20 05:30] metformin 500 mg tablet 500 mg PO DAILY #30 tab 07/28/20 [Last Taken Unknown] omeprazole 40 mg capsule,delayed release 40 mg PO DAILY #30 cap 07/28/20 [Last Taken Unknown] trazodone 50 mg tablet 50 mg PO HS #30 tab 07/28/20 [Last Taken Unknown] budesonide-formoterol HFA 160 mcg-4.5 mcg/actuation aerosol inhaler 2 puff INHALATION BID #10.2 g 08/11/20 [Last Taken Unknown] Allergies/Adverse Reactions: Allergies Allergy/AdvReac Type Severity Reaction Status Date / Time egg Allergy Unknown positive Verified 08/15/20 06:37 allergy testing grass pollen Allergy Unknown positive Verified 08/15/20 06:37 allergy testing horse dander Allergy Unknown positive Verified 08/15/20 06:37 allergy testing house dust mite Allergy Unknown per Verified 08/15/20 06:37 allergy testing lactose Allergy Unknown positive Verified 08/15/20 06:37 allergy testing mold Allergy Unknown positive Verified 08/15/20 06:37 allergy testing peanut Allergy Unknown positive Verified 08/15/20 06:37 allergy testing wheat Allergy Unknown positive Verified 08/15/20 06:37 allergy testing No Known Drug Allergies Allergy Verified 08/15/20 06:37 cockroach Allergy Unknown per Uncoded 08/15/20 06:37 allergy testing cows milk Allergy Unknown per Uncoded 08/15/20 06:37 allergy testing price Allergy Unknown per Uncoded 08/15/20 06:37 allergy testing - Planned Procedure Planned Procedure: R Arthroplasty Total Knee Medication List Reviewed:: Yes Allergies Verified: Yes Medical History (Last Reviewed 08/15/20 @ 07:00 by Mendoza Wolfe CRNA) Osteoporosis (Acute) patient states has osteopenia, not osteoporosis Major depression (Chronic) Diabetes mellitus, type II (Chronic) Asthma (Chronic) Seasonal allergies (Chronic) High triglycerides Hypothyroid states now normal with medication Influenza vaccine refused States she has already receive. 04/03/18 Sinus tachycardia Stress incontinence Bilateral primary osteoarthritis of knee Onset Date: ~10/24/17 Hay fever History of Thompson's esophagus now-resolved Dr. Taylor 2019 Knee pain Anemia Surgical History (Last Reviewed 08/15/20 @ 07:00 by Mendoza Wolfe CRNA) History of carpal tunnel release History of colonoscopy Onset Date: 06/03/15 Mukund 12/03/05-negative. 03/30/12-polyp, non-diagnostic. 06/03/15- hyperplastic polyp, ulceration w/associated inflammation. History of cyst of breast Onset Date: ~2012 1999, 2012 Poon-excision right breast cyst History of esophageal dilatation Onset Date: 06/03/15 Mukund-12/03/05, 06/03/15 History of esophagogastroduodenoscopy (EGD) Onset Date: 01/26/19 Mukund 12/03/05-gastric polyp, positive H.pylor, no Thompson's. 06/03/15- gastric polyp, mild chronic gastritis, Thompson's esophagus, no dysplasia. 01/26/19 Brandon-no Thompson's. Mild reflux esophagitis. History of hysterectomy Onset Date: ~1998 vaginal History of knee surgery Onset Date: ~2001 arthroscopy-left History of tubal ligation Onset Date: ~1985 Hx of total knee arthroplasty Onset Date: ~07/13/19 Left total knee arthroplasty. Dr. Gong Family History (Last Reviewed 08/15/20 @ 07:00 by Mendoza Wolfe CRNA) Mother , age 68-complication of diabetes Diabetes Son Alive and well 2 sons Daughter Alive and well Father , age 77-unsure of cause Status post partial gastrectomy Uncle Cancer several maternal uncles-lung ca - Family Anesthesia History Family History:: no untoward family reactions to anesthesia, no familial bleeding tendencies, no family history of clotting disorders, no family history of premature - Airway/Neck/Teeth Teeth Condition: missing - 2 Neck Exam: full range of motion Mallampatti Score: 3 Thyromental (T-M) distance: > 6 cm Mandibulo Hyoid distance: > 3 cm - Respiratory Respiratory History: asthma Respiratory Physical: lungs clear, decreased breath sounds Smoking Status: Never smoker - lived with smokers Sleep Apnea currently treated: No Sleep Apnea by current assessment: No - Cardiovascular Cardiac History: hypertension, hyperlipidemia Tolerate Activity: Poor Heart Sounds: S1 & S2, Regular - Gastrointestinal NPO since: 2400 - Anesthesia Assessment and Plan ASA Class: PS, III Anesthesia Type Plan: Block - adductor canal for post op pain relief, Spinal
[2020-08-15] MEDS ORDERED: FAMOTIDINE 20 MG in DEXTROSE 5 % IN WATER 100 ML IV ONE ×2 (08:02)
[2020-08-15] MEDS ORDERED: ACETAMINOPHEN 500 MG TABLET PO PRN (10:18)
[2020-08-15] MEDS ORDERED: ONDANSETRON HCL/PF 2 MG/ML VIAL IV PRN (10:18)
[2020-08-15] MEDS ORDERED: RINGER'S SOLUTION,LACTATED 1,000 ML IV PRN (10:18)
[2020-08-15] MEDS ORDERED: MAGNESIUM HYDROXIDE 30 ML UDC PO PRN (10:18)
[2020-08-15] MEDS ORDERED: MAG HYDROX/ALUMINUM HYD/SIMETH 30 ML UDC PO PRN (10:18)
[2020-08-15] MEDS ORDERED: ZOLPIDEM TARTRATE 5 MG TABLET PO PRN (10:18)
[2020-08-15] MEDS ORDERED: MORPHINE SULFATE 2 MG/ML DISP.SYRIN IV PRN (10:18)
[2020-08-15] MEDS ORDERED: diphenhydrAMINE HCL 50 MG/ML VIAL IV PRN (10:18)
--- NOTE | 2020-08-15 10:18 | OR ---
Operative Report - Dictated Report Narrative: Date: 08/15/2020 Preoperative diagnosis: Right knee degenerative joint disease. Postoperative diagnosis: Right knee degenerative joint disease. Procedure: Right total knee arthroplasty. Surgeon: Luis Antonio Black M.D. Plaster Machine Tender: Pedro Quiñones PA-C (provided and essential set of skilled, educated hands that assisted with transfer, positioning, prepping, draping, manipulation, retraction, placement of jigs, injection, insertion of implants, irrigation, closure wounds, and dressings all of which could not be performed by the available surgical crew) Anesthesia: Spinal with regional block and local periarticular joint injection. Complications: None Specimens: Bone. Estimated blood loss: Minimal. Tourniquet time: 75 Minutes at 325 millimeters of mercury. Retained implants: Depuy Attune size 4 narrow right lugged cemented posterior stabilized femoral component. Size 3 fixed-bearing cemented tibial platform. 4 by 6 millimeter posterior stabilized cross-linked tibial insert. 38 millimeter medialized patella button. Indications: Mrs. Potter is a 69-year-old female who has had longstanding right knee pain and arthrosis. This patient was followed in my clinic for period of time with significant complaints of right knee pain consistent with arthritic changes. She had failed conservative measures including, but not limited to, activity modification, passage of time, medications, and other conservative measures. Patient wished to proceed with surgical treatment. The risks, benefits, and alternatives were discussed in clinic. The risks of , blood clots, bleeding, infection, nerve/tendon blood vessel/ injury, malposition of components, intraoperative fracture, postoperative limited range of motion, persistent pain, failure of components, and need for additional procedures. Patient wished to proceed consent was obtained after answering all questions. Procedure: After marking the correct extremity on the floor, the patient was taken to the operating room. A timeout was performed. IV antibiotics consisting of Ancef were administered prior to the procedure. A regional followed by spinal anesthetic was induced by anesthesia, per my request, on the operative table with all bony prominences well-padded. Coker catheter was placed, and a bump was placed under the operative side buttock. SCDs and JACKELYN hose were utilized on the nonoperative leg. A well-padded tourniquet was applied to the operative thigh. The operative leg was then pre-scrubbed with alcohol, prepped, and draped in a standard sterile fashion. After exsanguinating the extremity with an Esmarch bandage, the tourniquet was inflated. After marking out the anterior knee for standard incision centered over the patella, the skin was incised and dissected down to the joint retinaculum. The joint retinaculum was marked out as well as the horizontal axis of the patella, and a standard medial parapatellar arthrotomy was then made. The most proximal aspect of the quadriceps tendon and the patella tendon insertion were protected from release. A partial synovectomy was performed as well as a resection of the infrapatellar fat pad. The distal femoral fat pad proximal to the trochlea was also resected using cautery. The soft tissues were elevated off the medial aspect of the proximal tibia using a Gibbons elevator ensuring that we did not transect the medial collateral ligament. Upon initial evaluation range of motion was approximately 0 degrees to 120 degrees of flexion. There were signs of advanced arthrosis in the medial and patellofemoral greater than lateral joint spaces. There were large marginal osteophytes which were removed with a rongeur. The knee was hyperflexed and the patella was tucked laterally. Protecting the surrounding soft tissues with Homans, an entry drill was placed down the femoral canal using Whitesides line for guidance into the entry point. The intramedullary femoral alignment gael was utilized in order to cut the distal femur in 5 degrees of valgus resecting 10 millimeters of bone. Next the distal femur was sized to a size 4. A posterior referencing guide was utilized to place the distal femoral cutting block in 3 degrees of external rotation. This was pinned into place. The rotation was confirmed both visually and based on anatomic landmarks. The 4 in 1 cutting jig of the appropriate size was utilized in order to make all bony cuts. The simone wing was used to ensure no notching. Retractors were utilized in order to protect surrounding soft tissues. This cut did not result in any excessive notching. We then cut the box centered over the distal femur. This allowed for resection of the anterior and posterior cruciate ligaments. I then turned my attention to the preparation of the tibia. Using an extra medullary tibial alignment gael, 3 millimeters of bone was resected off the medial articular surface. This was made perpendicular to the mechanical axis of the joint with the alignment gael centered over the ankle mortise. The alignment gael was checked and was noted to be parallel to the mechanical axis, centered over the medial one third of the tibial tubercle, paralleling the anterior surface of the tibia. We then turned our attention to the remaining meniscus and soft tissues. These were removed while protecting the surrounding ligaments and soft tissues. The marginal osteophytes off the anterior, posterior, medial, lateral aspects of the femur and tibia were removed. The tibia was sized out to a size 3. Next the tibia was drilled and punched in an externally rotated position. Next the trial femur and a series of tibial inserts were utilized in order to allow for full extension and maximal flexion. It was found that a 6 millimeter insert gave the best range of motion and stability at multiple flexion points as well as at full extension there was less than 2 mm of gapping both medially and laterally. There is minimal anterior translation with the knee at 90 degrees of flexion and no signs of being able to dislocate the knee. The patella was then prepared. The initial thickness was 20 millimeters. This was reamed down to 11 millimeters parallel to the anterior surface of the patella. It was sized out to a size 38 medialized patella button. This was then drilled and trialed. Without any medial restraint the patella tracked appropriately and did not sublux or dislocate. At this point, it was felt these were the appropriate sized implants, and all trials were removed. The standard periarticular joint injection consisting of ropivacaine, Toradol, and epinephrine were injected into the periarticular joint tissues. The bony surfaces were thoroughly irrigated with a pulsatile-suction saline irrigation device. A bone plug from the prior resected anterior chamfer cut was placed into the drill hole at the distal femur. The bony surfaces were then dried in preparation for placement of the implants. The cement was vacuum mixed per the analyst market intelligence's instructions. The cement was placed on the dry bony surfaces and posterior aspect of the implants. The implants were impacted into place, removing all extruded cement. At this point anesthesia administered tranexamic acid per protocol intravenously. The knee was placed in extension with axial loading with the trial insert while the cement cured. Once the cement cured, all remaining extruded cement was removed. The knee was placed through a range of motion with the trial insert to ensure appropriate range of motion and stability. Final range of motion was approximately 0 to 120 degrees. The knee was again thoroughly irrigated with pulsatile saline lavage. The final polyethylene insert was then impacted into place ensuring no retained soft tissues. The remaining periarticular joint injection was injected. A medium Hemovac drain was placed exiting superior laterally. The knee was then placed over a triangle and the arthrotomy was closed with interrupted #1 Vicryl after thoroughly irrigating the joint. The deep and subcutaneous tissues were closed with interrupted 0 and 3-0 Vicryl respectively. Skin was closed with a running subcutaneous 3-0 Monocryl and Prineo Dermabond dressing. 4 x 4's, Sof-Rol, and a full leg Valentino wrap were applied. All sponge, needle, blade, and instrument counts were correct prior to closing the wounds. Postoperative condition: The patient was awoken and transferred to the postanesthesia care unit in stable condition. Plan is to be admitted to the inpatient medical/surgical floor postoperatively for 24 hours of IV antibiotics, physical therapy, occupational therapy, and medical comanagement. Patient will be weightbearing as tolerated with range of motion as tolerated. DVT prophylaxis will be with SCDs, JACKELYN hose, and pharmacological anticoagulation. Anticipated hospital stay is approximately 1-3 days.
[2020-08-15] MEDS ORDERED: ALBUTEROL SULFATE 2.5 MG/0.5 ML VIAL.NEB IH PRN (10:20)
--- NOTE | 2020-08-15 10:42 | ANES ---
Post Anesthesia Discharge - Transfer of Care Transfer of Care handoff given to nurse: Yes - Discharge from PACU Discharge from PACU when meets criteria: Yes - Awake in PACU.
--- NOTE | 2020-08-15 10:43 | ANES ---
Anesthesia Procedure Note Procedure Note: ANESTHESIA PROCEDURE NOTE Date of Procedure: 08/15/2020 Time of procedure: 8:40 AM. Performed by: RUBÉN Agarwal CRNA, MSN Charge Entry Specialist: Gurpreet Max RN. Preprocedure diagnosis: Post right total knee arthroplasty pain. Post procedure diagnosis: Same. Procedure: Right adductor Canal Block. Indications: Post right total knee arthroplasty pain relief. Findings: See below. Details of the procedure: The patient was brought to OR #4 and placed in supine position. The patient's right femoral area to the knee was prepped with chlorhexidine and using ultrasound guidance the right femoral artery and nerve was identified and then followed to the level of the adductor canal. Lidocaine 1% was infiltrated to the skin of the intended injection site. Under ultrasound guidance the saphenous nerve was approached with visualization of a 4 inch shielded block needle. Once saphenous nerve was identified with proximity to the needle tip, the saphenous nerve was surrounded with 30 mL bupivacaine 0.25% with 1-200,000 epinephrine. Please see radiology/ultrasound report for details and retained images of the procedure. EBL: 0 Fluids: N/A. Specimen: N/A. Post procedure condition: The patient tolerated the procedure well. No complications were noted. Thank you for this consultation. Mendoza Wolfe CRNA, ARNP, MSN
[2020-08-15] MEDS ORDERED: MORPHINE SULFATE 4 MG/ML SYRG ONE (11:00)
[2020-08-15] MEDS: KETOROLAC TROMETHAMINE 15 MG/ML VIAL IV SCH ×3 (11:23→21:40)
[2020-08-15] MEDS: oxyCODONE HCL/ACETAMINOPHEN 1 TAB TABLET PO PRN ×2 (12:08→16:18)
[2020-08-15] MEDS: ceFAZolin SODIUM 1 GM in DEXTROSE 5 % IN WATER 100 ML IV SCH ×6 (12:19→23:45)
[2020-08-15] MEDS ORDERED: ROSUVASTATIN CALCIUM 10 MG TABLET PO SCH (21:00)
[2020-08-15] MEDS ORDERED: SENNOSIDES/DOCUSATE SODIUM 1 TAB TABLET PO SCH (21:00)
[2020-08-15] MEDS ORDERED: traZODone HCL 50 MG TABLET PO SCH (21:00)
[2020-08-15] MEDS: FLUTICASONE PROPION/SALMETEROL 14 PUFF DISK.W.DEV IH SCH (21:07)
[2020-08-16] MEDS: KETOROLAC TROMETHAMINE 15 MG/ML VIAL IV SCH ×2 (04:08→09:51)
[2020-08-16] MEDS: oxyCODONE HCL/ACETAMINOPHEN 1 TAB TABLET PO PRN ×2 (05:12→09:45)
[2020-08-16 06:28] LABS: Hematocrit 32.3 % (37.0-47.0); Hemoglobin 9.7 gm/dL (12.5-16.0); Mean Cell Volume 85.2 fl (78-100); Mean Corpuscular Hemoglobin 25.6 pg (27-31); Mean Platelet Volume 10.2 fl (8-12.5); Platelet Count 188 K/mm3 (150-450); Red Blood Count 3.79 M/mm3 (4.2-5.4); Red Cell Distribution Width 15.7 % (11.5-14.0); White Blood Count 8.6 K/mm3 (4.0-10.5)
[2020-08-16 06:38] LABS: BUN/Creatinine Ratio 14.8 (9.0-21.6); Calcium * 8.3 mg/dL (7.9-10.9); Carbon Dioxide 30.4 mmol/L (24-32.6); Potassium 4.4 mmol/L (3.4-4.6)
[2020-08-16] MEDS ORDERED: LEVOTHYROXINE SODIUM 25 MCG TABLET PO SCH (07:00)
[2020-08-16] MEDS ORDERED: PANTOPRAZOLE SODIUM 40 MG TABLET.EC PO SCH (07:00)
[2020-08-16] MEDS ORDERED: metFORMIN HCL 500 MG TABLET PO SCH (09:00)
[2020-08-16] MEDS ORDERED: METOPROLOL SUCCINATE 50 MG TABLET.SA PO SCH (09:00)
[2020-08-16] MEDS ORDERED: LISINOPRIL 20 MG TABLET PO SCH (09:00)
[2020-08-16] MEDS ORDERED: VENLAFAXINE HCL 150 MG CAP.SR.24H PO SCH (09:00)
[2020-08-16] MEDS ORDERED: ENOXAPARIN SODIUM 40 MG/0.4 ML SYRG SC SCH (09:19)
[2020-08-16] MEDS: FLUTICASONE PROPION/SALMETEROL 14 PUFF DISK.W.DEV IH SCH (09:48)
--- NOTE | 2020-08-16 13:04 | DS ---
(1) Status post total right knee replacement Problem: Acute Date of Discharge:: 08/16/20 Hospital Course: 69-year-old female postop day 1 status post right total knee arthroplasty. Patient was admitted postoperatively to monitor for postoperative complications, pain control, PT/OT, return to p.o. diet, and monitoring. Patient is an uncomplicated stay in the hospital at this point. She has met all goals with PT at this time. She is tender p.o. diet as needed complications. Her pain is w ell controlled with p.o. pain medication. Exam today reveals right lower extremity--> sensation tact light touch, this capillary refill brisk, +5 plantar flexion dorsiflexion ankle, diffuse mild tenderness about right knee, bandages clean dry and intact. Patient will continue with following recommendations: -Weightbearing as tolerated assistive ice as needed -PT/OT progress as tolerated -P.o. diet as tolerated -P.o. pain medication as needed -DVT prophylaxis: Lovenox until 7 days postop followed by 325 mg aspirin daily for 6 weeks -P.o. pain medication as needed -Pernio dressing in place -Follow-up orthopedic outpatient clinic at 3 weeks postop -Disposition: Discharge home self-care begin outpatient physical therapy, follow-up orthopedic outpatient clinic Procedures Performed: see notes below List Procedures: Status post right total knee arthroplasty Results and Findings: Lab Pending Results 08/16/20 06:27: WBC 8.6, RBC 3.79 L, Hgb 9.7 L, Hct 32.3 L, MCV 85.2, MCH 25.6 L, MCHC 30.0 L, RDW 15.7 H, Plt Count 188, MPV 10.2 08/16/20 06:27: Sodium 138, Plasma Sodium 139, Potassium 4.4, Chloride 105, Carbon Dioxide 30.4, Anion Gap 7.0, BUN 16, Creatinine 1.08, Est GFR (Non-Af Amer) 54 L, BUN/Creatinine Ratio 14.8, Random Glucose 171 H, Calcium 8.3 Discharge Location: Home Disposition: Home self-care Condition: Stable Discharge Activity: Activity as tolerated, Weight bearing - Assistive device as needed Discharge Diet: General/regular food Referrals: Suzanne White MD [Primary Care Provider] - Problem Oriented Discharge Instructions to Patient/Family: Total Knee Replacement, Care After, [id number] Print Language (German or Lithuanian Available): German Additional Patient Instructions (free text): Physical therapy at [facility] outpatient rehab on August 17 at 10:00am. Follow up [facility] Orthopedic office appointment on FridaySeptember 04 at 9:00am. Prescriptions (Any new or edited meds): Enoxaparin Sodium [Lovenox] 40 mg SC Q24H #6 disp.syrin Transmission Status: Pending to [facility] oxyCODONE HCL/ACETAMINOPHEN [Percocet 5 MG/325 MG] 2 tab PO Q4H PRN #50 tab PRN Reason: Moderate Pain (Pain Scale 4-6) Transmission Status: Received by [facility] Sennosides/Docusate Sodium [Senokot-S] 2 tab PO HS #60 tab Transmission Status: Pending to [facility] Complete Home Medications List: Complete Home Medication List: acetaminophen 650 mg tablet,extended release 650 mg PO Q8H PRN 09/09/18 blood sugar diagnostic See Rx Instructions .ROUTE .COMPLEX #100 ea 08/02/19 lancets See Rx Instructions .ROUTE .MEDSUPPLY #100 ea 08/02/19 inhalational spacing device See Rx Instructions .ROUTE .MEDSUPPLY #1 ea 09/20/19 ibuprofen 200 mg tablet 200 mg PO prn PRN tab 01/31/20 levothyroxine 25 mcg tablet See Rx Instructions .ROUTE .COMPLEX #90 tab 02/22/20 atorvastatin 20 mg tablet 20 mg PO HS #90 tab 03/06/20 meclizine 25 mg tablet 25 mg PO TID PRN #30 tab 03/23/20 metoprolol succinate 50 mg tablet,extended release 24 hr 50 mg PO DAILY #90 tab 04/05/20 venlafaxine 150 mg capsule,extended release 24 hr See Rx Instructions .ROUTE .COMPLEX #90 cap 05/09/20 albuterol sulfate 90 mcg/actuation aerosol inhaler 1 inh IH Q6H PRN #8 g 06/20/20 alendronate 70 mg tablet See Rx Instructions .ROUTE .COMPLEX #12 tab 07/11/20 lisinopril 20 mg tablet 20 mg PO DAILY #30 tab 07/28/20 metformin 500 mg tablet 500 mg PO DAILY #30 tab 07/28/20 omeprazole 40 mg capsule,delayed release 40 mg PO DAILY #30 cap 07/28/20 trazodone 50 mg tablet 50 mg PO HS #30 tab 07/28/20 budesonide-formoterol HFA 160 mcg-4.5 mcg/actuation aerosol inhaler 2 puff INHALATION BID #10.2 g 08/11/20 Enoxaparin Sodium [Lovenox] 40 mg SC Q24H #6 disp.syrin 08/16/20 Sennosides/Docusate Sodium [Senokot-S] 2 tab PO HS #60 tab 08/16/20 oxyCODONE HCL/ACETAMINOPHEN [Percocet 5 MG/325 MG] 2 tab PO Q4H PRN #50 tab 08/16/20 Amb Orders for Discharge: PT Evaluation and Treatment* Location: None Selected
[2020-08-16 15:22] VITALS: BP 113/76
== END 2020-08-16 15:17 | disposition home or self-care (01) ==
LOC: SUR 06:06 → EDSTATUS 08:00 → INTOOBSV 10:57 → MS 10:57
PROVIDERS: ADMIT Orthopaedic Surgery; ATTEND Orthopaedic Surgery